=== PATIENT | male | born 1930 | race Hispanic/Latino ===

== ENCOUNTER → 2018-11-28 | Outpatient (CLI) | payer MEDICARE ==
[~2018-11-28] MED LIST: ACET-2247 PO; ALBU1.252 IH; ASPI-1197 PO; BENZ200C53 PO; BISA5TAB12 PO; CARB-100 PO; CLOT15CR4 TP; DILT240C50 PO; DILT240C94 PO; DOCU-116 PO; DONE5TAB26 PO; DONE5TAB33 PO; ESCI10TA PO; ESCI5TAB PO; FERR325T22 PO; FOLI1TAB85 PO; IOHEXOL-350 50ML VIAL IV ONE; LEVO500T2 PO; LEVO75TA10 PO; LEVO75TA4 PO; LISI10TA PO; LISI10TA7 PO; LORA0.5T2 PO; LORA10TA7 PO; METF-446 PO; METF1000 PO; MULT-1192 PO; MUPI22O TP; OLAN10TA3 PO; ZINC220T PO
== END | disposition home or self-care (01) ==
LOC: RAH 07:45
PROVIDERS: ATTEND Family Medicine
DX: J90 Pleural effusion, not elsewhere classified (principal); R91.8 Other nonspecific abnormal finding of lung field; J94.8 Other specified pleural conditions
CPT/HCPCS: 71260; Q9967